=== PATIENT | female | born 1940 | race American Indian/Alaskan Native ===

== ENCOUNTER 2018-09-26 00:19 | Emergency (ER) | payer MEDICARE, OTHER ==
[2018-09-26] MEDS ORDERED: D50W (25GM) Syringe IV ONE ×2 (00:28→00:48)
[2018-09-26 02:57] LABS: Basophils % (Auto) 0.5 % (0.0-1.8); Eosinophils # (Auto) 0.1 K/mm3 (0.0-0.4); Eosinophils % (Auto) 0.8 % (0.0-4.3); Hematocrit 31.1 % (30.3-42.9); Hemoglobin 9.9 gm/dl (10.1-14.3); Lymphocytes # (Auto) 1.2 K/mm3 (1.2-5.4); Lymphocytes % (Auto) 16.8 % (13.4-35.0); Mean Corpuscular HGB Conc 32 % (30-34); Mean Corpuscular Volume 85 fl (79-97); Monocytes # (Auto) 0.5 K/mm3 (0.0-0.8); Platelet Count 225 K/mm3 (140-440); Red Blood Count 3.68 M/mm3 (3.65-5.03); Red Cell Distribution Width 16.5 % (13.2-15.2)
[2018-09-26 03:03] LABS: Alanine Aminotransferase 10 units/L (7-56); Albumin 3.6 g/dL (3.9-5); BUN/Creatinine Ratio 26; Blood Urea Nitrogen 41 mg/dL (7-17); Calcium 9.3 mg/dL (8.4-10.2); Hemolysis Index 3
[2018-09-26 03:29] LABS: Bilirubin,Urine NEG (Negative); Blood,Urine NEG (Negative); Color,Urine Straw (Yellow); Urobilinogen,Urine < 2.0 mg/dL (<2.0); WBC,Urine < 1.0 /HPF (0.0-6.0)
--- NOTE | 2018-09-26 03:39 | Emergency Department Report ---
ED General Adult HPI - General Chief complaint: Hypoglycemia Stated complaint: LOW BLOOD SUGAR Time Seen by Provider: 09/26/18 00:33 Source: EMS Mode of arrival: Wheelchair Limitations: Altered Mental Status - History of Present Illness Initial comments: 78-year-old female to shoot insulin-dependent diabetes presents to ED with hypoglycemia. Has been called EMS because patient was altered. Upon EMS arrival patient had Accu-Chek of 29. EMS unable to obtain IV and give D50 so transported to ED. Initial Accu-Chek here in ED read low, so the nurses inserted IV and gave 2 amps of D50. When I saw the patient, patient is awake and alert, pleasant, answering questions appropriately. Patient says she doesn't remember what happened, unsure if she ate prior to administering insulin this evening. -: During the night Severity scale (0 -10): 0 Consistency: now resolved Associated Symptoms: confusion Treatments Prior to Arrival: none - Related Data Home Medications Medication Instructions Recorded Confirmed Last Taken Anastrozole (Nf) [Arimidex (Nf)] 1 mg PO DAILY 03/04/14 03/10/14 03/09/14 Benazepril HCl 40 mg PO QDAY 03/04/14 03/10/14 03/10/14 04:45 Carvedilol [Coreg] 25 mg PO BID 03/04/14 03/10/14 03/10/14 04:45 Colchicine [Colcrys] 0.6 mg PO DAILY PRN 03/04/14 03/10/14 03/07/14 Ergocalciferol [Vitamin D2] 1.25 mg PO QWEEK 03/04/14 03/10/14 03/03/14 Furosemide [Lasix] 20 mg PO DAILY 03/04/14 03/10/14 03/09/14 Gabapentin 100 mg PO QHS 03/04/14 03/10/14 03/08/14 Insulin NPH Human Isophane 40 unit SQ BID 03/04/14 03/10/14 03/09/14 [HumuLIN N] Potassium Chloride 20 meq PO QDAY 03/04/14 03/10/14 03/09/14 Simvastatin 20 mg PO QHS 03/04/14 03/10/14 03/09/14 amLODIPine [Norvasc] 10 mg PO DAILY 03/04/14 03/10/14 03/10/14 04:45 cloNIDine [Catapres] 0.1 mg PO QHS 03/04/14 03/10/14 03/10/14 04:45 glipiZIDE [glipiZIDE XL] 10 mg PO TID 03/04/14 03/10/14 03/09/14 sitaGLIPtin [Januvia] 50 mg PO QDDIAB 03/04/14 03/10/14 03/09/14 Previous Rx's Medication Instructions Recorded Last Taken Type oxyCODONE /ACETAMINOPHEN [Percocet 1 - 2 tab PO Q4HR PRN #30 tablet 03/12/14 Unknown Rx 5/325] Allergies Allergy/AdvReac Type Severity Reaction Status Date / Time Sulfa (Sulfonamide Allergy Intermediate Nausea Verified 03/10/14 15:57 Antibiotics) ED Review of Systems ROS: Stated complaint: LOW BLOOD SUGAR Other details as noted in HPI Comment: All other systems reviewed and negative Constitutional: denies: chills, fever Respiratory: denies: cough, shortness of breath Cardiovascular: denies: chest pain Gastrointestinal: denies: abdominal pain, vomiting, diarrhea ED Past Medical Hx - Past Medical History Previous Medical History?: Yes Hx Hypertension: Yes (FOR 8 YRS, [facility]- 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 AG- [employer]) Hx Arthritis: Yes - Surgical History Additional Surgical History: Mastectomy - Social History Smoking Status: Never Smoker Substance Use Type: None - Medications Home Medications: Home Medications Medication Instructions Recorded Confirmed Last Taken Type Anastrozole (Nf) [Arimidex (Nf)] 1 mg PO DAILY 03/04/14 03/10/14 03/09/14 History Benazepril HCl 40 mg PO QDAY 03/04/14 03/10/14 03/10/14 04:45 History Carvedilol [Coreg] 25 mg PO BID 03/04/14 03/10/14 03/10/14 04:45 History Colchicine [Colcrys] 0.6 mg PO DAILY PRN 03/04/14 03/10/14 03/07/14 History Ergocalciferol [Vitamin D2] 1.25 mg PO QWEEK 03/04/14 03/10/14 03/03/14 History Furosemide [Lasix] 20 mg PO DAILY 03/04/14 03/10/14 03/09/14 History Gabapentin 100 mg PO QHS 03/04/14 03/10/14 03/08/14 History Insulin NPH Human Isophane 40 unit SQ BID 03/04/14 03/10/14 03/09/14 History [HumuLIN N] Potassium Chloride 20 meq PO QDAY 03/04/14 03/10/14 03/09/14 History Simvastatin 20 mg PO QHS 03/04/14 03/10/14 03/09/14 History amLODIPine [Norvasc] 10 mg PO DAILY 03/04/14 03/10/14 03/10/14 04:45 History cloNIDine [Catapres] 0.1 mg PO QHS 03/04/14 03/10/14 03/10/14 04:45 History glipiZIDE [glipiZIDE XL] 10 mg PO TID 03/04/14 03/10/14 03/09/14 History sitaGLIPtin [Januvia] 50 mg PO QDDIAB 03/04/14 03/10/14 03/09/14 History oxyCODONE /ACETAMINOPHEN [Percocet 1 - 2 tab PO Q4HR PRN #30 tablet 03/12/14 Unknown Rx 5/325] ED Physical Exam - General Limitations: Altered Mental Status General appearance: alert, in no apparent distress - Head Head exam: Present: atraumatic, normocephalic - Eye Eye exam: Present: normal appearance - ENT ENT exam: Present: mucous membranes moist - Neck Neck exam: Present: normal inspection - Respiratory Respiratory exam: Present: normal lung sounds bilaterally. Absent: respiratory distress - Cardiovascular Cardiovascular Exam: Present: regular rate, normal rhythm - GI/Abdominal GI/Abdominal exam: Present: soft. Absent: distended, tenderness - Extremities Exam Extremities exam: Present: normal inspection - Neurological Exam Neurological exam: Present: alert, oriented X3, CN II-XII intact. Absent: motor sensory deficit - Psychiatric Psychiatric exam: Present: normal affect, normal mood - Skin Skin exam: Present: warm, dry, intact, normal color. Absent: rash ED Course Vital Signs 09/26/18 09/26/18 09/26/18 00:32 00:46 01:00 Pulse Rate 63 64 65 Respiratory 15 15 14 Rate Blood Pressure 141/53 141/53 Blood Pressure [Right] O2 Sat by Pulse 100 100 99 Oximetry 09/26/18 09/26/18 09/26/18 01:06 01:15 01:30 Pulse Rate 65 65 66 Respiratory 15 16 14 Rate Blood Pressure 140/54 140/54 Blood Pressure 133/52 [Right] O2 Sat by Pulse 100 99 99 Oximetry 09/26/18 09/26/18 09/26/18 01:46 02:00 02:16 Pulse Rate 66 72 70 Respiratory 17 14 17 Rate Blood Pressure 130/104 114/67 140/68 Blood Pressure [Right] O2 Sat by Pulse 100 100 100 Oximetry 09/26/18 09/26/18 09/26/18 02:30 02:46 03:00 Pulse Rate 72 73 91 H Respiratory 18 18 21 Rate Blood Pressure 171/81 132/98 Blood Pressure [Right] O2 Sat by Pulse 99 100 100 Oximetry 09/26/18 09/26/18 09/26/18 03:16 03:30 04:14 Pulse Rate 69 68 68 Respiratory 16 17 17 Rate Blood Pressure 132/98 132/98 Blood Pressure 133/52 [Right] O2 Sat by Pulse 99 98 98 Oximetry ED Medical Decision Making - Lab Data Result diagrams: 09/26/18 01:01 09/26/18 01:01 - Medical Decision Making Accu-Chek now normal. Patient given a sandwich and juice to eat. States she is ready to go home. Will discharge at this time. Outpatient follow-up advised. - Differential Diagnosis hypoglycemia, UTI Critical care attestation.: If time is entered above; I have spent that time in minutes in the direct care of this critically ill patient, excluding procedure time. ED Disposition Clinical Impression: Hypoglycemia Disposition: DC-01 TO HOME OR SELFCARE Is pt being admited?: No Condition: Stable Instructions: Diabetic Hypoglycemia (ED) Referrals: PRIMARY CARE, [Referring] - 3-5 Days Forms: Work/School Release Form(ED) Time of Disposition: 03:39
[2018-09-26 04:16] VITALS: BP 133/52
== END 2018-09-26 04:14 | disposition home or self-care (01) ==
LOC: ED 00:19
DX: E11.649 Type 2 diabetes mellitus with hypoglycemia without coma (principal); E11.22 Type 2 diabetes mellitus with diabetic chronic kidney disease; I12.9 Hypertensive chronic kidney disease with stage 1 through stage 4 chronic kidney disease, or unspecified chronic kidney disease; N18.9 Chronic kidney disease, unspecified; Z88.2 Allergy status to sulfonamides
CPT/HCPCS: 36415; 80053; 81001; 82962; 85025; 96374

== ENCOUNTER 2021-01-01 09:36 | Outpatient (CLI) | payer MEDICARE ==
--- NOTE | 2021-01-01 12:35 | Mammography Report ---
DIGITAL SCREENING MAMMOGRAM WITH CAD, 01/01/2021 CLINICAL INFORMATION / INDICATION: Routine screening mammography. SCREENING MAMMO TECHNIQUE: Digital bilateral 2D mammography was obtained in the craniocaudal and mediolateral obliqu e projections. This examination was interpreted with the benefit of Computer-Aided Detection analysis . COMPARISON: 08/25/16 through 01/01/20. FINDINGS: Breast Density: There are scattered areas of fibroglandular density. Postlumpectomy/radiation changes in the left breast are stable. No new abnormality is seen on the lef t. There is a new 5 mm ill-defined nodule in the right breast in the lower inner quadrant in the middle depth near the 5:00 position approximately 6 cm from the nipple. No other change is seen. IMPRESSION: New small right breast nodule. Right breast ultrasound is recommended for initial evaluat ion. Spot compression views could be performed if necessary. Follow up recommendation: Ultrasound BI-RADS Category 0: Incomplete. Needs additional imaging evaluation and/or prior mammograms for terrance jay. A "normal" or negative report should not discourage follow up or biopsy of a clinically significant f inding. A written summary of these findings will be mailed to the patient. The patient will be entered into a mammography reporting system which will generate a reminder letter for the patient's next appointmen t at the appropriate interval. The [employer] recommends yearly mammograms starting at age 40 and continuing as l beverly as a woman is in good health. Breast MRI is recommended for women with an approximate 20-25% or greater lifetime risk of breast cancer, including women with a strong family history of breast or ova cedrick cancer or who have been treated for Hodgkin's disease. Signer Name: Jet Croft MD Signed: 01/01/2021 12:30 PM Workstation Name: [id number]
== END 2021-01-01 09:37 | disposition home or self-care (01) ==
LOC: SPVWC 09:36
PROVIDERS: ATTEND Surgery
DX: Z12.31 Encounter for screening mammogram for malignant neoplasm of breast (principal); N63.14 Unspecified lump in the right breast, lower inner quadrant
CPT/HCPCS: 77067

== ENCOUNTER 2021-01-13 15:19 | Outpatient (CLI) | payer MEDICARE ==
--- NOTE | 2021-01-14 10:39 | Ultrasound Report ---
RIGHT DIGITAL DIAGNOSTIC MAMMOGRAM WITH CAD , 01/13/2021 RIGHT LIMITED BREAST ULTRASOUND CLINICAL INFORMATION / INDICATION: ABNORMAL MAMMO R92.8 TECHNIQUE: Digital right mammographic imaging was performed. Spot compression views were obtained. Li mited ultrasound was performed. This examination was interpreted with the benefit of Computer-Aided D etection (CAD) analysis. COMPARISON: Recent screening mammogram 01/01/2021 and prior mammograms from 2019 and 2018 FINDINGS: Breast Density: There are scattered areas of fibroglandular density. MAMMOGRAPHIC FINDINGS: In the 6-7:00 location of the right breast, anterior/middle depth, there is a small oval nodule with slightly indistinct margins, present. This nodule measures approximately 7 x 5 mm. This nodule was not present on the 2020 mammogram.. ULTRASOUND FINDINGS: Targeted ultrasound evaluation was performed of the area of interest. Sonograp hic evaluation of the inferior right breast does not reveal any cystic or solid mass. Specifically th ere is no finding to correlate with the new nodule identified mammographically. IMPRESSION: Persistent 7 mm nodule in the inferior right breast at approximately 6-7:00. As there is no sonographic correlate, stereotactic biopsy is recommended for further evaluation. Follow up recommendation: Biopsy BI-RADS Category 4: Suspicious for Malignancy. A "normal" or negative report should not discourage follow up or biopsy of a clinically significant f inding. A written summary of these findings will be mailed to the patient. The patient will be entered into a mammography reporting system which will generate a reminder letter for the patient's next appointmen t at the appropriate interval. According to the [employer], yearly mammograms are recommended starting at age 40 and continuing as long as a woman is in good health. Breast MRI is recommended for women with an bj roximately 20-25% or greater lifetime risk of breast cancer, including women with a strong family his tory of breast or ovarian cancer and women who have been treated for Hodgkin's disease. Signer Name: Nicki Lagunas MD Signed: 01/14/2021 10:35 AM Workstation Name: [id number]
== END 2021-01-13 15:20 | disposition home or self-care (01) ==
LOC: SPVWC 15:19
PROVIDERS: ATTEND Surgery
DX: N63.13 Unspecified lump in the right breast, lower outer quadrant (principal); R92.8 Other abnormal and inconclusive findings on diagnostic imaging of breast

== ENCOUNTER 2021-02-09 09:27 | Outpatient (CLI) | payer MEDICARE ==
--- NOTE | 2021-02-09 11:58 | Mammography Report ---
PERCUTANEOUS STEREOTACTIC-GUIDED RIGHT BREAST BIOPSY WITH MARKER PLACEMENT HISTORY: Right inferior breast lesion. CONSENT: Technique, risks and alternatives were discussed with the patient and informed written conse nt obtained. PROCEDURE: The patient was placed in the upright position within the stereotactic suite. The lesion within the i nferior right breast was targeted mammographically. [employer] and stereo pair images were acquired to gen erate the computer-derived coordinates for targeting. The skin overlying the chosen biopsy site were cleansed with Betadine. The skin and superficial soft tissues were anesthetized with a small amount of buffered 1% lidocaine. The deeper soft tissues were anesthetized with buffered 1% lidocaine with epinephrine. A small dermatotomy was created through which the Atec biopsy device was placed. Pre and post fire st ereo pair images were acquired to confirm appropriate needle trajectory. Using vacuum assistance, 8 c ore specimen samples were acquired. A post procedure stereo pair image suggested adequate sampling of the target. A post procedure specimen was obtained, however no definite mammographic lesion was seen . This is not unexpected. A biopsy marker was deposited at the biopsy site. Postprocedure mammograms in the CC and LM projection were obtained. These demonstrate slight decrease appearance of the mammo graphic mass with air and biopsy changes in this region. The biopsy marker is felt to be slightly med ial (13 mm) to the biopsy site. Manual pressure was applied at the biopsy site to achieve hemostasis. The incision margins were appro ximated with Steri-Strips. Postprocedure care instructions were administered in both verbal and writt en forms. The patient voiced understanding and departed the [facility] in stable, satisfactory con dition. IMPRESSION Technically successful stereotactic biopsy of right breast lesion at the 7:00 position with the biops y marker located slightly medial (13 mm) to the biopsy site. An addendum will be added to this report once pathology results are available. Signer Name: Deuce Rubio MD Signed: 02/09/2021 11:54 AM Workstation Name: [id number]
--- NOTE | 2021-02-09 12:01 | Mammography Report ---
RIGHT DIAGNOSTIC MAMMOGRAM INDICATION: Status post right breast stereotactic biopsy. COMPARISON: 01/13/2021, 01/01/2021. FINDINGS: Right breast CC and LM projection mammograms were obtained. These document a biopsy marker 13 mm medial to the site of recent stereotactic biopsy. Biopsy changes including gas are noted at the site of the previously noted lesion in the right inferior breast. IMPRESSION: Right breast mammographic images documenting biopsy marker located slightly medial (13 mm) to the sit e of recent stereotactic biopsy within the right breast. BI-RADS Category 4: Suspicious for Malignancy. Signer Name: Deuce Rubio MD Signed: 02/09/2021 11:56 AM Workstation Name: [id number]
== END 2021-02-09 09:28 | disposition home or self-care (01) ==
LOC: SPVWC 09:27
PROVIDERS: ATTEND Surgery
DX: R92.8 Other abnormal and inconclusive findings on diagnostic imaging of breast (principal); I10 Essential (primary) hypertension; E78.00 Pure hypercholesterolemia, unspecified; M19.90 Unspecified osteoarthritis, unspecified site; Z85.3 Personal history of malignant neoplasm of breast; Z79.899 Other long term (current) drug therapy; Z98.890 Other specified postprocedural states
CPT/HCPCS: 19081; 77065; 88305; A4648; 88341; 88342

== ENCOUNTER 2021-09-23 10:02 | Observation (INO) | payer MEDICARE ==
--- NOTE | 2021-09-23 10:12 | Emergency Department Report ---
ED Neuro Deficit HPI - General Chief Complaint: Neuro Symptoms/Deficit Stated Complaint: STROKE Time Seen by Provider: 09/23/21 10:06 - History of Present Illness Initial Comments: 81-year-old female history of hypertension and diabetes who presents emergency department concern for acute stroke. Patient was last known normal yesterday. Around 830 she was noted to be acting abnormally. When paramedics arrived patient's blood sugar was in the 40s she received oral glucose and her blood sugar improved to the 160s. She continues to have slurred speech despite glucose administration. - Related Data Home Medications: Home Medications Medication Instructions Recorded Confirmed Last Taken Simvastatin 20 mg PO QHS 03/04/14 03/10/14 09/22/21 21:00 20 MG amLODIPine 10 mg PO DAILY 03/04/14 03/10/14 09/22/21 0800 carvediloL [Coreg] 25 mg PO BID 03/04/14 03/10/14 09/22/21 0800 Insulin Glargine,Hum.rec.anlog 20 units SQ HS 09/23/21 09/23/21 09/22/21 21:00 [Lantus Solostar] 20 UNITS Palbociclib [Ibrance] 100 mg PO DAILY 09/23/21 09/23/21 09/22/21 0800 Allergies/Adverse Reactions: Allergies Allergy/AdvReac Type Severity Reaction Status Date / Time Sulfa (Sulfonamide Allergy Intermediate Nausea Verified 09/23/21 13:55 Antibiotics) ED Review of Systems ROS: Stated complaint: STROKE Other details as noted in HPI Comment: Unobtainable due to pts medical conditions ED Past Medical Hx - Past Medical History Hx Hypertension: Yes (FOR 8 YRS, [facility]- PCP, DR. 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 AG- [place]) Hx Arthritis: Yes - Surgical History Additional Surgical History: Mastectomy - Social History Smoking Status: Never Smoker Substance Use Type: None - Medications Home Medications: Home Medications Medication Instructions Recorded Confirmed Last Taken Type Simvastatin 20 mg PO QHS 03/04/14 03/10/14 09/22/21 21:00 History 20 MG amLODIPine 10 mg PO DAILY 03/04/14 03/10/14 09/22/21 History 0800 carvediloL [Coreg] 25 mg PO BID 03/04/14 03/10/14 09/22/21 History 08 Insulin Glargine,Hum.rec.anlog 20 units SQ HS 09/23/21 09/23/21 09/22/21 21:00 History [Lantus Solostar] 20 UNITS Palbociclib [Ibrance] 100 mg PO DAILY 09/23/21 09/23/21 09/22/21 History 0800 ED Neuro Physical Exam - General General appearance: alert Suspected Stroke: Yes - Head Head exam: Present: atraumatic, normocephalic - Eye Eye exam: Present: normal appearance - ENT ENT exam: Present: mucous membranes moist - Neck Neck exam: Present: normal inspection - Respiratory Respiratory exam: Present: normal lung sounds bilaterally. Absent: respiratory distress - Cardiovascular Cardiovascular Exam: Present: regular rate, normal rhythm. Absent: systolic murmur, diastolic murmur, rubs, gallop - GI/Abdominal GI/Abdominal exam: Present: soft, normal bowel sounds - Rectal Rectal exam: Present: deferred - Extremities Exam Extremities exam: Present: normal inspection - Back Exam Back exam: Present: normal inspection - Neurological Exam Neurological exam: Present: alert - NIHSS Assessment Interval: Baseline 1a. Level of Consciousness: alert/keenly responsive 1b. LOC Questions: answers 1 question correctly 1c. LOC Commands: performs tasks correctly 2. Best Gaze: normal 3. Visual: no visual loss 4. Facial Palsy: normal symmetrical movement 5b. Motor Arm Right: no drift 5a. Motor Arm Left: no drift 6a. Motor Leg Left: no drift 6b. Motor Leg Right: no drift 7. Limb Ataxia: absent 8. Sensory: normal 9. Best Language: mild/moderate aphasia 10. Dysarthria: mild/moderate dysarthria 11. Extinction/Inattention: no abnormality Total Score: 3 Stroke Severity: Minor Stroke - Psychiatric Psychiatric exam: Present: normal affect - Skin Skin exam: Present: warm, dry, intact, normal color. Absent: rash ED Course Vital Signs 09/23/21 09/23/21 09/23/21 10:27 10:30 10:45 Temperature Pulse Rate 53 L 55 L Respiratory 14 13 17 Rate Blood Pressure 125/51 123/44 Blood Pressure [Right] O2 Sat by Pulse 97 Oximetry 09/23/21 09/23/21 09/23/21 11:01 11:15 11:31 Temperature Pulse Rate 54 L 54 L 58 L Respiratory 15 14 16 Rate Blood Pressure 125/40 135/38 128/81 Blood Pressure [Right] O2 Sat by Pulse 96 96 97 Oximetry 09/23/21 09/23/21 09/23/21 12:01 13:01 14:01 Temperature Pulse Rate 60 62 68 Respiratory 15 12 25 H Rate Blood Pressure 128/81 94/74 113/75 Blood Pressure [Right] O2 Sat by Pulse 99 98 96 Oximetry 09/23/21 09/23/21 09/23/21 15:01 15:11 16:01 Temperature Pulse Rate 69 69 Respiratory 14 16 20 Rate Blood Pressure 161/142 171/57 Blood Pressure [Right] O2 Sat by Pulse 96 100 97 Oximetry 09/23/21 09/23/21 09/23/21 17:01 18:01 18:45 Temperature Pulse Rate 74 69 76 Respiratory 22 17 Rate Blood Pressure 159/57 144/58 Blood Pressure [Right] O2 Sat by Pulse 96 96 Oximetry 09/23/21 09/23/21 09/23/21 19:01 20:01 21:01 Temperature Pulse Rate 80 74 75 Respiratory 19 16 20 Rate Blood Pressure 133/70 164/57 160/49 Blood Pressure [Right] O2 Sat by Pulse 96 97 97 Oximetry 09/23/21 09/23/21 09/23/21 21:31 21:41 21:51 Temperature Pulse Rate 82 79 77 Respiratory 20 21 21 Rate Blood Pressure 160/49 160/49 160/49 Blood Pressure [Right] O2 Sat by Pulse 97 98 97 Oximetry 09/23/21 09/23/21 09/23/21 22:01 22:11 22:21 Temperature Pulse Rate 77 77 79 Respiratory 17 22 20 Rate Blood Pressure 170/50 170/50 170/50 Blood Pressure [Right] O2 Sat by Pulse 99 97 97 Oximetry 09/23/21 09/23/21 09/23/21 22:54 23:06 23:18 Temperature 98.3 F 98.0 F Pulse Rate 79 74 Respiratory 16 19 Rate Blood Pressure 170/50 141/58 Blood Pressure 170/50 [Right] O2 Sat by Pulse 100 95 Oximetry - Reevaluation(s) Reevaluation #1: 09/23/21 11:55 Patient has hypoglycemia second episode she is also noted to be on glipizide. Concern for possible glipizide overdose. We will place patient on D10 and patient likely to be admitted for further management. Reevaluation #2: 09/23/21 13:13 Stroke unlikely. Patient is not the TPA candidate due to her hypoglycemia and unknown last normal and her symptoms are likely secondary to this. - Lab Data Result diagrams: 09/23/21 10:22 09/23/21 Unknown Lab Results 09/23/21 09/23/21 09/23/21 Range/Units 10: 10: 10: WBC 2.0 L (4.5-11.0) K/mm3 RBC 2.65 L (3.65-5.03) M/mm3 Hgb 7.7 L (10.1-14.3) gm/dl Hct 23.0 L (30.3-42.9) % MCV 87 (79-97) fl MCH 29 (28-32) pg MCHC 34 (30-34) % RDW 22.8 H (13.2-15.2) % Plt Count 100 L (140-440) K/mm3 Add Manual Diff Complete Total Counted 100 Seg Neuts % (Manual) 71.0 H (40.0-70.0) % Band Neutrophils % 0 % Lymphocytes % (Manual) 25.0 (13.4-35.0) % Reactive Lymphs % (Man) 0 % Monocytes % (Manual) 3.0 (0.0-7.3) % Eosinophils % (Manual) 0 (0.0-4.3) % Basophils % (Manual) 1.0 (0.0-1.8) % Metamyelocytes % 0 % Myelocytes % 0 % Promyelocytes % 0 % Blast Cells % 0 % Nucleated RBC % 1.0 H (0.0-0.9) % Seg Neutrophils # Man 1.4 L (1.8-7.7) K/mm3 Band Neutrophils # 0.0 K/mm3 Lymphocytes # (Manual) 0.5 L (1.2-5.4) K/mm3 Abs React Lymphs (Man) 0.0 K/mm3 Monocytes # (Manual) 0.1 (0.0-0.8) K/mm3 Eosinophils # (Manual) 0.0 (0.0-0.4) K/mm3 Basophils # (Manual) 0.0 (0.0-0.1) K/mm3 Metamyelocytes # 0.0 K/mm3 Myelocytes # 0.0 K/mm3 Promyelocytes # 0.0 K/mm3 Blast Cells # 0.0 K/mm3 WBC Morphology Not Reportable Hypersegmented Neuts Not Reportable Hyposegmented Neuts Not Reportable Hypogranular Neuts Not Reportable Smudge Cells Few Toxic Granulation Not Reportable Toxic Vacuolation Not Reportable Dohle Bodies Not Reportable Pelger-Huet Anomaly Not Reportable Shruthi Rods Not Reportable Platelet Estimate Consistent w auto Clumped Platelets Not Reportable Plt Clumps, EDTA Not Reportable Large Platelets Not Reportable Giant Platelets Not Reportable Platelet Satelliting Not Reportable Plt Morphology Comment Not Reportable RBC Morphology Not Reportable Dimorphic RBCs Not Reportable Polychromasia Not Reportable Hypochromasia Not Reportable Poikilocytosis Not Reportable Anisocytosis 1+ Microcytosis Not Reportable Macrocytosis 1+ Spherocytes Not Reportable Pappenheimer Bodies Not Reportable Sickle Cells Not Reportable Target Cells Not Reportable Tear Drop Cells Not Reportable Ovalocytes Few Helmet Cells Not Reportable Meyer-[place] Bodies Not Reportable [place] Rings Not Reportable [place] Cells Not Reportable Bite Cells Not Reportable Crenated Cell Not Reportable Elliptocytes Few Acanthocytes (Spur) Not Reportable Rouleaux Not Reportable Hemoglobin C Crystals Not Reportable Schistocytes Not Reportable Malaria parasites Not Reportable Holden Bodies Not Reportable Hem Pathologist Commnt No PT 13.1 (12.2-14.9) Sec. INR 0.90 (0.87-1.13) APTT 26.1 (24.2-36.6) Sec. Thrombin Time 18.8 (15.1-19.6) Sec. POC Glucose (70-105) mg/dL Total Creatine Kinase 97 (30-135) units/L CK-MB (CK-2) 1.8 (0.0-4.0) ng/mL CK-MB (CK-2) Rel Index 1.8 (0-4) Troponin T < 0.010 (0.00-0.029) ng/mL 09/23/21 09/23/21 09/23/21 Range/Units 11:06 13:05 18:18 WBC (4.5-11.0) K/mm3 RBC (3.65-5.03) M/mm3 Hgb (10.1-14.3) gm/dl Hct (30.3-42.9) % MCV (79-97) fl MCH (28-32) pg MCHC (30-34) % RDW (13.2-15.2) % Plt Count (140-440) K/mm3 Add Manual Diff Total Counted Seg Neuts % (Manual) (40.0-70.0) % Band Neutrophils % % Lymphocytes % (Manual) (13.4-35.0) % Reactive Lymphs % (Man) % Monocytes % (Manual) (0.0-7.3) % Eosinophils % (Manual) (0.0-4.3) % Basophils % (Manual) (0.0-1.8) % Metamyelocytes % % Myelocytes % % Promyelocytes % % Blast Cells % % Nucleated RBC % (0.0-0.9) % Seg Neutrophils # Man (1.8-7.7) K/mm3 Band Neutrophils # K/mm3 Lymphocytes # (Manual) (1.2-5.4) K/mm3 Abs React Lymphs (Man) K/mm3 Monocytes # (Manual) (0.0-0.8) K/mm3 Eosinophils # (Manual) (0.0-0.4) K/mm3 Basophils # (Manual) (0.0-0.1) K/mm3 Metamyelocytes # K/mm3 Myelocytes # K/mm3 Promyelocytes # K/mm3 Blast Cells # K/mm3 WBC Morphology Hypersegmented Neuts Hyposegmented Neuts Hypogranular Neuts Smudge Cells Toxic Granulation Toxic Vacuolation Dohle Bodies Pelger-Huet Anomaly Shruthi Rods Platelet Estimate Clumped Platelets Plt Clumps, EDTA Large Platelets Giant Platelets Platelet Satelliting Plt Morphology Comment RBC Morphology Dimorphic RBCs Polychromasia Hypochromasia Poikilocytosis Anisocytosis Microcytosis Macrocytosis Spherocytes Pappenheimer Bodies Sickle Cells Target Cells Tear Drop Cells Ovalocytes Helmet Cells Meyer-[place] Bodies [place] Rings Denisse Cells Bite Cells Crenated Cell Elliptocytes Acanthocytes (Spur) Rouleaux Hemoglobin C Crystals Schistocytes Malaria parasites Holden Bodies Hem Pathologist Commnt PT (12.2-14.9) Sec. INR (0.87-1.13) APTT (24.2-36.6) Sec. Thrombin Time (15.1-19.6) Sec. POC Glucose 44 L 120 H 114 H (70-105) mg/dL Total Creatine Kinase (30-135) units/L CK-MB (CK-2) (0.0-4.0) ng/mL CK-MB (CK-2) Rel Index (0-4) Troponin T (0.00-0.029) ng/mL - Medical Decision Making Patient is a 81-year-old female here with complaints of slurred speech in the setting hypoglycemia. Despite additional glucose administration patient is still with slurred speech. Unknown last known normal but apparently symptoms were onset around 8:30 PM per paramedics. Stroke 24 is called and patient went emergently for CT head without contrast, CTA head and neck with contrast. Will also have further discussion with patient family to further determine last known normal. We will also obtain serial blood sugars for 4 hours to evaluate for any additional hypoglycemia. Will work-up for hypoglycemia to ensure patient does not have an DC or infection or overdose of medication as cause of her hypoglycemia. Critical care attestation.: If time is entered above; I have spent that time in minutes in the direct care of this critically ill patient, excluding procedure time. ED Disposition Clinical Impression: Hypoglycemia, Adverse effect of glipizide, ZULAY (acute kidney injury) Disposition: 09 ADMITTED INPATIENT Is pt being admited?: Yes Does the pt Need Aspirin: No Condition: Stable
--- NOTE | 2021-09-23 10:23 | Cat Scan Report ---
CT head/brain wo con INDICATION: CODE STROKE CALL [phone]. TECHNIQUE: Routine CT head. All CT scans at this location are performed using CT dose reduction for A OLGA LIDIA by means of automated exposure control. COMPARISON: None. FINDINGS: Intracranial: Juares-white matter differentiation is maintained. No intracranial hemorrhage. No extra a xial collection. No hydrocephalus. No herniation. Sinuses: Paranasal sinuses and mastoid air cells are essentially clear. Orbits: Globes are intact. Calvarium: No acute fracture. IMPRESSION: 1. No acute intracranial abnormality. Informed Sukhwinder Timmons at 9:18 Signer Name: Shakir Jeffers MD Signed: 09/23/2021 10:18 AM Workstation Name: [id number]
[2021-09-23 10:38] LABS: Hemoglobin 7.7 gm/dl (10.1-14.3); Mean Corpuscular HGB Conc 34 % (30-34); Mean Corpuscular Volume 87 fl (79-97); Platelet Count 100 K/mm3 (140-440); Red Blood Count 2.65 M/mm3 (3.65-5.03)
[2021-09-23 10:42] LABS: Red Cell Distribution Width 22.8 % (13.2-15.2)
--- NOTE | 2021-09-23 10:46 | Cat Scan Report ---
CT angio head, CT angio neck HISTORY: slurred speech 100 ML OMNI 350 COMPARISON: None. TECHNIQUE: CTA of the neck and head is performed after IV contrast. 3-D/MIP reformats were postproces sed. Percentage stenosis is determined by direct quantitative measurements of diseased internal tripathi tid artery diameter compared with normal distal internal carotid artery reference segments or by crit eria similar to NASCET where applicable. All CT scans at this location are performed using CT dose re duction for ALARA by means of automated exposure control. FINDINGS: CTA Neck: Aortic arch: No significant abnormality. Cervical vertebral arteries: No occlusion or hemodynamically significant stenosis. Common Carotid arteries: No occlusion or hemodynamically significant stenosis. Internal carotid arteries: Bulky atherosclerosis approximately 70% stenosis the right internal caroti d artery origin, image 189 of series 4. Minimal poststenotic dilation. High-grade stenosis of the rig ht external carotid artery origin. Mild atherosclerosis of the left carotid bulb without significant stenosis or occlusion. Additional findings: Interlobular septal thickening and peribronchial thickening in the visualized imelda ng parenchyma which is likely related to interstitial edema.. There are scattered groundglass opaciti es. There is a 5 mm pulmonary nodule along the right fissure as seen on image 81 of series 607, most likely a peripheral lymph node. CTA HEAD: Intracranial internal carotid arteries: No occlusion or significant stenosis. Anterior cerebral arteries: No occlusion or significant stenosis. Middle cerebral arteries: No occlusion or significant stenosis. Intracranial vertebral arteries: No occlusion or significant stenosis. Basilar artery: No occlusion or significant stenosis. Posterior cerebral arteries: No occlusion or significant stenosis. No aneurysm. Additional findings: None. IMPRESSION: 1. CTA Neck: Bulky atherosclerosis in the right carotid bulb and proximal internal carotid artery jon gin with approximately 70% stenosis. 2. CTA HEAD: No proximal large vessel occlusion. Signer Name: Shakir Jeffers MD Signed: 09/23/2021 10:41 AM Workstation Name: [id number]
[2021-09-23 10:49] LABS: INR 0.9 (0.87-1.13)
[2021-09-23 10:50] LABS: Thrombin Time 18.8 Sec. (15.1-19.6)
[2021-09-23 10:54] LABS: Partial Thromboplastin Time 26.1 Sec. (24.2-36.6)
[2021-09-23 10:56] LABS: Creatine Kinase MB 1.8 ng/mL (0.0-4.0)
[2021-09-23] MEDS ORDERED: DEXTROSE 10% *Hypoglycemia IV ONE (11:11)
--- NOTE | 2021-09-23 11:12 | XRay Report ---
. XR chest 1V ap INDICATION / CLINICAL INFORMATION: stroke workup. COMPARISON: None available. FINDINGS: SUPPORT DEVICES: None. HEART /PULMONARY VASCULATURE: Heart size is accentuated by low lung volumes and AP technique. No sign ificant pulmonary vasculature congestion. LUNGS / PLEURA: Mildly low lung volumes without focal airspace consolidation. No pleural effusion or pneumothorax. IMPRESSION: Low lung volumes without evidence of acute process. Signer Name: Jeremy Licea MD Signed: 09/23/2021 11:08 AM Workstation Name: [id number]
[2021-09-23 11:24] LABS: Eosinophils % (Manual) 0 % (0.0-4.3); Total Cells Counted 100
[2021-09-23 11:25] LABS: Anisocytosis 1+; Macrocytosis 1+; Ovalocytes Few; Platelet Estimate Consistent w Auto; Smudge Cells Few
--- NOTE | 2021-09-23 11:41 | Emergency Department Report ---
Blank Doc - Documentation Documentation: [facility] Consult Note # Demographics Consult Type: Acute Stroke Level 2 (4.5-24 hrs) Patient Location: Emergency Room First Name: Magnolia Last Name: Carlos Age: 81 Gender: Female Facility: [facility] Time of Initial Page ( Time): 09/23/2021, 09:46 Time of Return Call ( Time): 09/23/2021, 09:46 # Scores Time of exam and NIHSS ( Time): 09/23/2021, 10:22 Level of Consciousness 1a: [0] = Alert; keenly responsive LOC Questions 1b: [0] = Answers both questions correctly LOC Commands 1c: [0] = Performs both tasks correctly Best Gaze 2: [0] = Normal Visual 3: [0] = No visual loss Facial Palsy 4: [1] = Minor paralysis Motor Arm Left 5a: [0] = No drift Motor Arm Right 5b: [0] = No drift Motor Leg Left 6a: [0] = No drift Motor Leg Right 6b: [0] = No drift Limb Ataxia 7: [0] = Absent Sensory 8: [0] = Normal Best Language 9: [0] = No aphasia Dysarthria 10: [1] = [id number] dysarthria Extinction and Inattention 11: [0] = No abnormality NIHSS Total: 2 # Assessment Impression: hypoglycemia # Plan Thrombolytic/Intervention: NOT IV Thrombolysis or IA Intervention candidate Thrombolytic Exclusion: > 4.5 hours Thrombolytic/Intraarterial Exclusion: IV thrombolytic and IA intervention considered but not recommended as this patient's symptoms are not clinically consistent with an assumed diagnosis of stroke Other: I have discussed my recommendations with the referring provider # Logistics Telemedicine: Interactive 2 way audio and visual telecommunication technology was utilized during this visit
[2021-09-23] MEDS ORDERED: DEXTROSE 10% IN WATER 1,000 ML IV SCH (12:00)
[2021-09-23 12:57] LABS: Alanine Aminotransferase 10 units/L (7-56); Albumin 3.7 g/dL (3.9-5); Blood Urea Nitrogen 77 mg/dL (7-17); Calcium 9.1 mg/dL (8.4-10.2); Hemolysis Index 7
[2021-09-23 13:33] LABS: BUN/Creatinine Ratio 19
[2021-09-23] MEDS ORDERED: SODIUM CHLORIDE 0.9% 1000 ML 1,000 ML IV ONE (13:43)
[2021-09-23 14:17] LABS: Bilirubin,Urine NEG (Negative); Blood,Urine NEG (Negative); Color,Urine Yellow (Yellow); Urobilinogen,Urine < 2.0 mg/dL (<2.0)
--- NOTE | 2021-09-23 18:27 | History and Physical Report ---
History of Present Illness Date of examination: 09/23/21 Date of admission: September 23, 2021 Chief complaint: Altered sensorium and low blood glucose level History of present illness: 81-year-old female history of hypertension and diabetes who presents emergency department concern for acute stroke. Patient was last known normal yesterday. Around 830 she was noted to be acting abnormally. When paramedics arrived patient's blood sugar was in the 40s she received oral glucose and her blood sugar improved to the 160s. She continues to have slurred speech despite glucose administration. During my examination patient was with normal mentation and moving all 4 ext remities. Hypoglycemia is the cause of her altered sensorium but extensive work-up for stroke was done which is unnecessary. Normal neurological exam. 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) --Arthritis: Yes - Surgical History --Additional Surgical History: Mastectomy - Social History --Smoking Status: Never Smoker --Substance Use Type: None Review of Systems ROS: Stated complaint: STROKE Other details as noted in HPI Comment: Unobtainable due to pts medical conditions Medications and Allergies Allergies Allergy/AdvReac Type Severity Reaction Status Date / Time Sulfa (Sulfonamide Allergy Intermediate Nausea Verified 09/23/21 13:55 Antibiotics) Home Medications Medication Instructions Recorded Confirmed Last Taken Type Simvastatin 20 mg PO QHS 03/04/14 03/10/14 09/22/21 21:00 History 20 MG amLODIPine 10 mg PO DAILY 03/04/14 03/10/14 09/22/21 History 0800 carvediloL [Coreg] 25 mg PO BID 03/04/14 03/10/14 09/22/21 History 0800 Insulin Glargine,Hum.rec.anlog 20 units SQ HS 09/23/21 09/23/21 09/22/21 21:00 History [Lantus Solostar] 20 UNITS Palbociclib [Ibrance] 100 mg PO DAILY 09/23/21 09/23/21 09/22/21 History 0800 Active Meds: Active Medications Dextrose (D10w) 1,000 mls @ 75 mls/hr IV DIRECT YANIV Last Admin: 09/23/21 14:14 Dose: 75 mls/hr Exam - Constitutional Vitals: Temp Pulse Resp BP Pulse Ox 74 22 159/57 96 09/23/21 17:01 09/23/21 17:01 09/23/21 17:01 09/23/21 17:01 General appearance: Present: no acute distress, well-nourished - EENT Eyes: Present: PERRL ENT: hearing intact, clear oral mucosa - Neck Neck: Present: supple, normal ROM - Respiratory Respiratory effort: normal Respiratory: bilateral: CTA - Cardiovascular Heart rate: 78 Rhythm: regular Heart Sounds: Present: S1 & S2. Absent: rub, click - Extremities Extremities: pulses symmetrical, No edema Peripheral Pulses: within normal limits - Abdominal General gastrointestinal: Present: soft, non-tender, non-distended, normal bowel sounds Female genitourinary: Present: normal - Integumentary Integumentary: Present: clear, warm, dry - Musculoskeletal Musculoskeletal: gait normal, strength equal bilaterally - Psychiatric Psychiatric: appropriate mood/affect, intact judgment & insight - Neurologic Neurologic: CNII-XII intact, moves all extremities HEART Score - HEART Score Troponin: Troponin T < 0.010 ng/mL (0.00-0.029) 09/23/21 10:22 Results - Labs CBC & Chem 7: 09/24/21 05:03 09/24/21 05:03 Labs: Laboratory Last Values WBC 2.0 K/mm3 (4.5-11.0) L 09/23/21 10: RBC 2.65 M/mm3 (3.65-5.03) L 09/23/21 10:22 Hgb 7.7 gm/dl (10.1-14.3) L 09/23/21 10: Hct 23.0 % (30.3-42.9) L 09/23/21 10: MCV 87 fl (79-97) 09/23/21 10: MCH 29 pg (28-32) 09/23/21 10: MCHC 34 % (30-34) 09/23/21 10: RDW 22.8 % (13.2-15.2) H 09/23/21 10:22 Plt Count 100 K/mm3 (140-440) L 09/23/21 10:22 Add Manual Diff Complete 09/23/21 10:22 Total Counted 100 09/23/21 10:22 Seg Neuts % (Manual) 71.0 % (40.0-70.0) H 09/23/21 10:22 Band Neutrophils % 0 % 09/23/21 10:22 Lymphocytes % (Manual) 25.0 % (13.4-35.0) 09/23/21 10:22 Reactive Lymphs % (Man) 0 % 09/23/21 10:22 Monocytes % (Manual) 3.0 % (0.0-7.3) 09/23/21 10:22 Eosinophils % (Manual) 0 % (0.0-4.3) 09/23/21 10: Basophils % (Manual) 1.0 % (0.0-1.8) 09/23/21 10:22 Metamyelocytes % 0 % 09/23/21 10: Myelocytes % 0 % 09/23/21 10: Promyelocytes % 0 % 09/23/21 10:22 Blast Cells % 0 % 09/23/21 10: Nucleated RBC % 1.0 % (0.0-0.9) H 09/23/21 10:22 Seg Neutrophils # Man 1.4 K/mm3 (1.8-7.7) L 09/23/21 10:22 Band Neutrophils # 0.0 K/mm3 09/23/21 10:22 Lymphocytes # (Manual) 0.5 K/mm3 (1.2-5.4) L 09/23/21 10:22 Abs React Lymphs (Man) 0.0 K/mm3 09/23/21 10:22 Monocytes # (Manual) 0.1 K/mm3 (0.0-0.8) 09/23/21 10:22 Eosinophils # (Manual) 0.0 K/mm3 (0.0-0.4) 09/23/21 10:22 Basophils # (Manual) 0.0 K/mm3 (0.0-0.1) 09/23/21 10:22 Metamyelocytes # 0.0 K/mm3 09/23/21 10:22 Myelocytes # 0.0 K/mm3 09/23/21 10:22 Promyelocytes # 0.0 K/mm3 09/23/21 10:22 Blast Cells # 0.0 K/mm3 09/23/21 10:22 WBC Morphology Not Reportable 09/23/21 10:22 Hypersegmented Neuts Not Reportable 09/23/21 10:22 Hyposegmented Neuts Not Reportable 09/23/21 10:22 Hypogranular Neuts Not Reportable 09/23/21 10:22 Smudge Cells Few 09/23/21 10:22 Toxic Granulation Not Reportable 09/23/21 10:22 Toxic Vacuolation Not Reportable 09/23/21 10:22 Dohle Bodies Not Reportable 09/23/21 10:22 Pelger-Huet Anomaly Not Reportable 09/23/21 10:22 Shruthi Rods Not Reportable 09/23/21 10:22 Platelet Estimate Consistent w auto 09/23/21 10:22 Clumped Platelets Not Reportable 09/23/21 10:22 Plt Clumps, EDTA Not Reportable 09/23/21 10:22 Large Platelets Not Reportable 09/23/21 10:22 Giant Platelets Not Reportable 09/23/21 10:22 Platelet Satelliting Not Reportable 09/23/21 10:22 Plt Morphology Comment Not Reportable 09/23/21 10:22 RBC Morphology Not Reportable 09/23/21 10:22 Dimorphic RBCs Not Reportable 09/23/21 10:22 Polychromasia Not Reportable 09/23/21 10:22 Hypochromasia Not Reportable 09/23/21 10:22 Poikilocytosis Not Reportable 09/23/21 10:22 Anisocytosis 1+ 09/23/21 10:22 Microcytosis Not Reportable 09/23/21 10:22 Macrocytosis 1+ 09/23/21 10:22 Spherocytes Not Reportable 09/23/21 10:22 Pappenheimer Bodies Not Reportable 09/23/21 10:22 Sickle Cells Not Reportable 09/23/21 10:22 Target Cells Not Reportable 09/23/21 10:22 Tear Drop Cells Not Reportable 09/23/21 10:22 Ovalocytes Few 09/23/21 10:22 Helmet Cells Not Reportable 09/23/21 10:22 Meyer-Admire Bodies Not Reportable 09/23/21 10:22 Luebbering Rings Not Reportable 09/23/21 10:22 Denisse Cells Not Reportable 09/23/21 10:22 Bite Cells Not Reportable 09/23/21 10:22 Crenated Cell Not Reportable 09/23/21 10:22 Elliptocytes Few 09/23/21 10:22 Acanthocytes (Spur) Not Reportable 09/23/21 10:22 Rouleaux Not Reportable 09/23/21 10:22 Hemoglobin C Crystals Not Reportable 09/23/21 10:22 Schistocytes Not Reportable 09/23/21 10:22 Malaria parasites Not Reportable 09/23/21 10:22 Holden Bodies Not Reportable 09/23/21 10:22 Hem Pathologist Commnt No 09/23/21 10:22 PT 13.1 Sec. (12.2-14.9) 09/23/21 10:22 INR 0.90 (0.87-1.13) 09/23/21 10: APTT 26.1 Sec. (24.2-36.6) 09/23/21 10:22 Thrombin Time 18.8 Sec. (15.1-19.6) 09/23/21 10:22 Sodium 145 mmol/L (137-145) 09/23/21 Unknown Potassium 3.9 mmol/L (3.6-5.0) 09/23/21 Unknown Chloride 108.7 mmol/L (98-107) H 09/23/21 Unknown Carbon Dioxide 19 mmol/L (22-30) L 09/23/21 Unknown Anion Gap 21 mmol/L 09/23/21 Unknown BUN 77 mg/dL (7-17) H 09/23/21 Unknown Creatinine 4.0 mg/dL (0.6-1.2) H 09/23/21 Unknown Estimated GFR 13 ml/min 09/23/21 Unknown BUN/Creatinine Ratio 19 % 09/23/21 Unknown Glucose 34 mg/dL (65-100) L* 09/23/21 Unknown POC Glucose 114 mg/dL (70-105) H 09/23/21 18:18 Calcium 9.1 mg/dL (8.4-10.2) 09/23/21 Unknown Total Bilirubin < 0.20 mg/dL (0.1-1.2) 09/23/21 Unknown AST 13 units/L (5-40) 09/23/21 Unknown ALT 10 units/L (7-56) 09/23/21 Unknown Alkaline Phosphatase 59 units/L (35-129) 09/23/21 Unknown Total Creatine Kinase 97 units/L (30-135) 09/23/21 10: CK-MB (CK-2) 1.8 ng/mL (0.0-4.0) 09/23/21 10: CK-MB (CK-2) Rel Index 1.8 (0-4) 09/23/21: Troponin T < 0.010 ng/mL (0.00-0.029) 09/23/21 10: Total Protein 6.6 g/dL (6.3-8.2) 09/23/21 Unknown Albumin 3.7 g/dL (3.9-5) L 09/23/21 Unknown Albumin/Globulin Ratio 1.3 % 09/23/21 Unknown Urine Color Yellow (Yellow) 09/23/21 Unknown Urine Turbidity Clear (Clear) 09/23/21 Unknown Urine pH 5.0 (5.0-7.0) 09/23/21 Unknown Ur Specific Flora 1.023 (1.003-1.030) 09/23/21 Unknown Urine Protein 30 mg/dl mg/dL (Negative) 09/23/21 Unknown Urine Glucose (UA) 50 mg/dL (Negative) 09/23/21 Unknown Urine Ketones Neg mg/dL (Negative) 09/23/21 Unknown Urine Blood Neg (Negative) 09/23/21 Unknown Urine Nitrite Neg (Negative) 09/23/21 Unknown Urine Bilirubin Neg (Negative) 09/23/21 Unknown Urine Urobilinogen < 2.0 mg/dL (<2.0) 09/23/21 Unknown Ur Leukocyte Esterase Neg (Negative) 09/23/21 Unknown Urine WBC (Auto) 2.0 /HPF (0.0-6.0) 09/23/21 Unknown Urine RBC (Auto) 2.0 /HPF (0.0-6.0) 09/23/21 Unknown U Epithel Cells (Auto) 3.0 /HPF (0-13.0) 09/23/21 Unknown Short CBC 09/23/21 09/24/21 Range/Units : 05:03 WBC 2.0 L 2.1 L (4.5-11.0) K/mm3 Hgb 7.7 L 7.5 L (10.1-14.3) gm/dl Hct 23.0 L 23.5 L (30.3-42.9) % Plt Count 100 L 100 L (140-440) K/mm3 BMP 09/23/21 09/24/21 Unknown 05:03 Sodium 145 144 Potassium 3.9 4.1 Chloride 108.7 H 109.1 H Carbon Dioxide 19 L 19 L BUN 77 H 67 H Creatinine 4.0 H 3.7 H Glucose 34 L* 150 H Calcium 9.1 8.6 Cardiac Enzymes 09/23/21 Range/Units 10:22 Total Creatine Kinase 97 (30-135) units/L CK-MB (CK-2) 1.8 (0.0-4.0) ng/mL Troponin T < 0.010 (0.00-0.029) ng/mL Liver Function 09/23/21 09/24/21 Range/Units Unknown 05:03 Total Bilirubin < 0.20 0.20 (0.1-1.2) mg/dL AST 13 17 (5-40) units/L ALT 10 12 (7-56) units/L Alkaline Phosphatase 59 63 (35-129) units/L Albumin 3.7 L 3.3 L (3.9-5) g/dL Urine 09/23/21 Range/Units Unknown Urine Color Yellow (Yellow) Urine pH 5.0 (5.0-7.0) Ur Specific Flora 1.023 (1.003-1.030) Urine Protein 30 mg/dl (Negative) mg/dL Urine Glucose (UA) 50 (Negative) mg/dL Assessment and Plan Advance Directives: Yes (Full code) VTE prophylaxis?: Chemical Plan of care discussed with patient/family: Yes - Patient Problems (1) Acute encephalopathy Current Visit: Yes Status: Acute Plan to address problem: Secondary to hypoglycemia Resolved If blood glucose levels are normal patient can be discharged tomorrow home No further neuro work-up is needed (2) Hypoglycemia Current Visit: Yes Status: Acute Plan to address problem: No oral hypoglycemics Patient to be discharged on decreased insulin dosage Patient counseled about hypoglycemia and its effects and prevention (3) IDDM (insulin dependent diabetes mellitus) Current Visit: Yes Status: Acute Plan to address problem: Insulin dosage is decreased Patient on D5 normal saline (4) Hypertension Current Visit: Yes Status: Chronic Qualifiers: Hypertension type: primary hypertension Qualified Code(s): I10 - Essential (primary) hypertension Plan to address problem: Continue antihypertensive (5) ZULAY (acute kidney injury) Current Visit: Yes Status: Acute Plan to address problem: IV fluids for now Vasomotor nephropathy (6) DVT prophylaxis Current Visit: Yes Status: Acute Plan to address problem: On anticoagulation GI prophylaxis (7) Advance care planning Current Visit: Yes Status: Acute Plan to address problem: Disease education conducted, care plan discussed, diagnosis discussed., Prognosis discussed. Patient is full code. Patient acknowledges understanding and agreement with care plan. +30 minutes.
[2021-09-23] MEDS ORDERED: MORPHINE 2 MG/1 ML INJ IV PRN (18:29)
[2021-09-23] MEDS ORDERED: oxyCODONE /ACETAMINOPHEN 5-325MG TAB PO PRN (18:29)
[2021-09-23] MEDS ORDERED: ACETAMINOPHEN 325 MG TAB PO PRN (18:29)
[2021-09-23] MEDS ORDERED: ONDANSETRON 4 MG/2 ML INJ IV PRN (18:29)
[2021-09-23] MEDS ORDERED: METOCLOPRAMIDE 10 MG/2 ML INJ IV PRN (18:29)
[2021-09-23] MEDS ORDERED: PALBOCICLIB 100 MG PO SCH (18:30)
[2021-09-23] MEDS ORDERED: D5W/0.9% NACL 1,000 ML IV SCH (19:00)
[2021-09-23] MEDS ORDERED: PRAVASTATIN 20 MG TAB PO SCH (22:00)
[2021-09-23] MEDS ORDERED: NON-FORMULARY EACH (Simvastatin [Simvastatin] 20 MG Tablet) PO SCH (22:00)
[2021-09-24] MEDS: HEPARIN 5,000 UNIT/1 ML VIAL SUB-Q SCH ×2 (00:09→09:43)
[2021-09-24] MEDS: carvediloL 25 MG TAB PO SCH ×2 (00:09→09:43)
[2021-09-24] MEDS: amLODIPine 10 MG TAB PO SCH ×2 (00:10→09:43)
[2021-09-24] MEDS ORDERED: SODIUM CHLORIDE 0.9% 1000 ML 1,000 ML IV SCH (00:30)
[2021-09-24 05:41] LABS: Hematocrit 23.5 % (30.3-42.9); Hemoglobin 7.5 gm/dl (10.1-14.3); Mean Corpuscular HGB Conc 32 % (30-34); Mean Corpuscular Volume 88 fl (79-97); Platelet Count 100 K/mm3 (140-440); Red Blood Count 2.68 M/mm3 (3.65-5.03)
[2021-09-24 05:46] LABS: Red Cell Distribution Width 23.1 % (13.2-15.2)
[2021-09-24 06:23] LABS: Albumin 3.3 g/dL (3.9-5); Calcium 8.6 mg/dL (8.4-10.2)
[2021-09-24 06:57] LABS: Total Cells Counted 100
[2021-09-24 06:58] LABS: Anisocytosis 2+; Hypochromasia 2+; Platelet Estimate Consistent w Auto
[2021-09-24] MEDS ORDERED: INSULIN LISPRO 100 UNIT/ML SUB-Q SCH (07:30)
--- NOTE | 2021-09-24 08:54 | Consultation ---
History of Present Illness Consult date: 09/24/21 Reason for Consult: Confusion,Hypoglycemia,and right carotid stenosis History of present illness: History of Present Illness Date of examination: 09/23/21 Date of admission: September 23, 2021 Chief complaint: Altered sensorium and low blood glucose level History of present illness: 81-year-old female history of hypertension and diabetes who presents emergency department concern for acute stroke. Patient was last known normal yesterday. Around 830 she was noted to be acting abnormally. When paramedics arrived patient's blood sugar was in the 40s she received oral glucose and her blood sugar improved to the 160s. She continues to have slurred speech despite glucose administration. During my examination patient was with normal mentation and moving all 4 extremities. Patient being admitted for observation to rule out recurrent hypoglycemia Oral hypoglycemics to be held In Er Ct brain is unremarkable CTA brain and neck are remarkable for right ICA stenosis >70 % she denied hx of CVA ,she does not take ASA according to pt. she is with recurrent hypoglycemia and her PCP had adjusted her Insulin dose she is on chemotherapy for treatment of right breast cancer with LN metastesis she refused Brain MRI according to her last MRI brain is done 6 months ago !!! 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) --Arthritis: Yes - Surgical History --Additional Surgical History: Mastectomy - Social History --Smoking Status: Never Smoker --Substance Use Type: None Review of Systems ROS: Stated complaint: STROKE Other details as noted in HPI Comment: Unobtainable due to pts medical conditions Medications and Allergies Allergies Allergy/AdvReac Type Severity Reaction Status Date / Time Sulfa (Sulfonamide Allergy Intermediate Nausea Verified 09/23/21 13:55 Antibiotics) Home Medications Medication Instructions Recorded Confirmed Last Taken Type Simvastatin 20 mg PO QHS 03/04/14 03/10/14 09/22/21 21:00 History 20 MG amLODIPine 10 mg PO DAILY 03/04/14 03/10/14 09/22/21 History 0800 carvediloL [Coreg] 25 mg PO BID 03/04/14 03/10/14 09/22/21 History 0800 Insulin Glargine,Hum.rec.anlog 20 units SQ HS 09/23/21 09/23/21 09/22/21 21:00 History [Lantus Solostar] 20 UNITS Palbociclib [Ibrance] 100 mg PO DAILY 09/23/21 09/23/21 09/22/21 History 0800 Active Meds: Active Medications Dextrose (D10w) 1,000 mls @ 75 mls/hr IV DIRECT YANIV Last Admin: 09/23/21 14:14 Dose: 75 mls/hr Medications and Allergies Allergies Allergy/AdvReac Type Severity Reaction Status Date / Time Sulfa (Sulfonamide Allergy Intermediate Nausea Verified 09/23/21 13:55 Antibiotics) Home Medications Medication Instructions Recorded Confirmed Last Taken Type Simvastatin 20 mg PO QHS 03/04/14 03/10/14 09/22/21 21:00 History 20 MG amLODIPine 10 mg PO DAILY 03/04/14 03/10/14 09/22/21 History 08 carvediloL [Coreg] 25 mg PO BID 03/04/14 03/10/14 09/22/21 History 0800 Insulin Glargine,Hum.rec.anlog 20 units SQ HS 09/23/21 09/23/21 09/22/21 21:00 H istory [Lantus Solostar] 20 UNITS Palbociclib [Ibrance] 100 mg PO DAILY 09/23/21 09/23/21 09/22/21 History 0800 Active Meds: Active Medications Acetaminophen (Acetaminophen 325 Mg Tab) 650 mg PO Q4H PRN PRN Reason: Pain MILD(1-3)/Fever >100.5/COELHO Amlodipine Besylate (Amlodipine 10 Mg Tab) 10 mg PO DAILY YANIV Last Admin: 09/24/21 00:10 Dose: Not Given Carvedilol (Carvedilol 25 Mg Tab) 25 mg PO BID YANIV Last Admin: 09/24/21 00:09 Dose: Not Given Heparin Sodium (Porcine) (Heparin 5,000 Unit/1 Ml Vial) 5,000 unit SUB-Q Q12HR YANIV Last Admin: 09/24/21 00:09 Dose: Not Given Sodium Chloride (Nacl 0.9% 1000 Ml) 1,000 mls @ 75 mls/hr IV DIRECT YANIV Last Admin: 09/24/21 01:43 Dose: 75 mls/hr Insulin Human Lispro (Insulin Lispro 100 Unit/Ml) 0 unit SUB-Q ACHS [facility]; Protocol Metoclopramide HCl (Metoclopramide 10 Mg/2 Ml Inj) 10 mg IV Q6H PRN PRN Reason: Nausea And Vomiting Miscellaneous Medication (Palbociclib [Ibrance]) 100 mg PO DAILY [facility] Morphine Sulfate (Morphine 2 Mg/1 Ml Inj) 2 mg IV Q4H PRN PRN Reason: Pain, Moderate (4-6) Ondansetron HCl (Ondansetron 4 Mg/2 Ml Inj) 4 mg IV Q8H PRN PRN Reason: Nausea And Vomiting Oxycodone/Acetaminophen (Oxycodone /Acetaminophen 5-325mg Tab) 1 tab PO Q6H PRN PRN Reason: Pain, Moderate (4-6) Pravastatin Sodium (Pravastatin 20 Mg Tab) 20 mg PO QHS [facility] Last Admin: 09/24/21 00:09 Dose: 20 mg Sodium Chloride (Sodium Chloride 0.9% 10 Ml Flush Syringe) 10 ml IV BID [facility] Last Admin: 09/24/21 00:10 Dose: 10 ml Sodium Chloride (Sodium Chloride 0.9% 10 Ml Flush Syringe) 10 ml IV PRN PRN PRN Reason: LINE FLUSH Physical Examination - Vital Signs Vital Signs: Vital Signs Resp 14 09/23/21 10:27 - Constitutional General appearance: comfortable - EENT EENT: Present: PERRL, mucous membranes moist - Respiratory Respiratory: Present: lungs clear, rhonchi - Cardiovascular Cardiovascular: Present: regular rate, normal S1, normal S2 Extremities: Present: no peripheral edema bilatateraly, no clubbing, cyanosis - Gastrointestinal Gastrointestinal: Present: normoactive bowel sounds - Integumentary Integumentary: Present: normal - Neurologic Cranial nerve examination: PERRL, EOMI, intact Speech examination: intact Sensorimotor examination: intact Detailed motor examination: grossly full strength in - Level of Consciousness 1a. Level of Consciousness: alert/keenly responsive - LOC Questions 1b. LOC Questions: answers both correctly - LOC Command 1c. LOC Commands: performs tasks correctly - Best Gaze 2. Best Gaze: normal - Visual 3. Visual: no visual loss - Facial Palsy 4. Facial Palsy: normal symmetrical movement - Motor Arm 5a. Motor Arm Left: no drift 5b. Motor Arm Right: no drift - Motor Leg 6a. Motor Leg Left: no drift 6b. Motor Leg Right: no drift - Limb Ataxia 7. Limb Ataxia: absent - Sensory 8. Sensory: normal - Best Language 9. Best Language: no aphasia - Dysarthria 10. Dysarthria: normal - Extinction and Inattention 11. Extinction/Inattention: no abnormality - Scoring Total Score: 0 Stroke Severity: No Stroke Symptoms Results - Laboratory Findings CBC and BMP: 09/24/21 05:03 09/24/21 05:03 Abnormal Lab Findings: Abnormal Labs 09/23/21 09/23/21 09/23/21 10:22 11:06 13:05 WBC 2.0 L RBC 2.65 L Hgb 7.7 L Hct 23.0 L RDW 22.8 H Plt Count 100 L Seg Neuts % (Manual) 71.0 H Lymphocytes % (Manual) Nucleated RBC % 1.0 H Seg Neutrophils # Man 1.4 L Lymphocytes # (Manual) 0.5 L Chloride Carbon Dioxide BUN Creatinine Glucose POC Glucose 44 L 120 H Albumin 09/23/21 09/23/21 09/23/21 18:18 21:35 Unknown WBC RBC Hgb Hct RDW Plt Count Seg Neuts % (Manual) Lymphocytes % (Manual) Nucleated RBC % Seg Neutrophils # Man Lymphocytes # (Manual) Chloride 108.7 H Carbon Dioxide 19 L BUN 77 H Creatinine 4.0 H Glucose 34 L* POC Glucose 114 H 234 H Albumin 3.7 L 09/24/21 09/24/21 09/24/21 00:17 05:03 05:03 WBC 2.1 L RBC 2.68 L Hgb 7.5 L Hct 23.5 L RDW 23.1 H Plt Count 100 L Seg Neuts % (Manual) Lymphocytes % (Manual) 36.0 H Nucleated RBC % Seg Neutrophils # Man 1.2 L Lymphocytes # (Manual) 0.8 L Chloride 109.1 H Carbon Dioxide 19 L BUN 67 H Creatinine 3.7 H Glucose 150 H POC Glucose 249 H Albumin 3.3 L Assessment and Plan Assessment and Plan 81-year-old female history of hypertension and diabetes who presents emergency department concern for acute stroke. Patient was last known normal yesterday. Around 830 she was noted to be acting abnormally. When paramedics arrived patient's blood sugar was in the 40s she received oral glucose and her blood sugar improved to the 160s. She continues to have slurred speech despite glucose administration. During my examination patient was with normal mentation and moving all 4 extremities. - Patient Problems # Acute encephalopathy/ weakness -Etiology not clear if from Hypoglycemia and or TIA vs CVA -presented to Er with confusion and slurred speech -Glucose was in 40th -CT brain is unremarkable -CTA brain and neck remarkable for Right ICA stenosis >70% -pt. refused MRI -placed on ASA 325 mg daily -LDL is pending -echo is pending -take provachole 20 mf daily # Right ICA stenosis -noted on CTA neck -placed on ASA and Provachole -she refused MRI brain -LDL is pending -echo is pending # Hypoglycemia -No oral hypoglycemics -Patient to be discharged on decreased insulin dosage -Patient counseled about hypoglycemia and its effects and prevention # IDDM (insulin dependent diabetes mellitus) -Insulin dosage is decreased -Patient on D5 normal saline -A1C is pending # Hx of cancer breast -currently on chemotherapy -she is with LN metastasis -followed by oncology # Hypertension -Continue antihypertensive # ZULAY (acute kidney injury) -BUN/Cr#67/3.7 -she is with hx of chronic kidney disease -IV fluids for now -Vasomotor nephropathy # DVT prophylaxis -On anticoagulation GI prophylaxis PLAN 1- Control of suger /monitor closly 2- ASA 81 mg daily,and provachol 20 mg 3- pt. refused MRI brain 4- review LDL and A1C 5- Consider vascualr surgery follow up 6-echo will follow as needed
--- NOTE | 2021-09-24 09:19 | Electrocardiograph Report ---
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
--- NOTE | 2021-09-24 09:35 | Progress Note ---
Assessment and Plan Assessment and plan: (1) Acute encephalopathy Current Visit: Yes Status: Acute Plan to address problem: Secondary to hypoglycemia Resolved If blood glucose levels are normal patient can be discharged tomorrow home No further neuro work-up is needed (2) Hypoglycemia Current Visit: Yes Status: Acute Plan to address problem: No oral hypoglycemics Patient to be discharged on decreased insulin dosage Patient counseled about hypoglycemia and its effects and prevention (3) IDDM (insulin dependent diabetes mellitus) Current Visit: Yes Status: Acute Plan to address problem: Insulin dosage is decreased Patient on D5 normal saline (4) Hypertension Current Visit: Yes Status: Chronic Qualifiers: Hypertension type: primary hypertension Qualified Code(s): I10 - Essential (primary) hypertension Plan to address problem: Continue antihypertensive (5) ZULAY (acute kidney injury) Current Visit: Yes Status: Acute Plan to address problem: IV fluids for now Vasomotor nephropathy (6) DVT prophylaxis Current Visit: Yes Status: Acute Plan to address problem: On anticoagulation GI prophylaxis (7) Advance care planning Current Visit: Yes Status: Acute Plan to address problem: Disease education conducted, care plan discussed, diagnosis discussed., Prognosis discussed. Patient is full code. Patient acknowledges understanding and agreement with care plan. +30 minutes. Hospitalist Physical - Constitutional Vitals: Temp Pulse Resp BP Pulse Ox 98.6 F 73 17 186/57 92 09/24/21 08:56 09/24/21 03:35 09/24/21 08:56 09/24/21 08:56 09/24/21 03:35 General appearance: Present: no acute distress, well-nourished HEART Score - HEART Score Troponin: Troponin T < 0.010 ng/mL (0.00-0.029) 09/23/21 10:22 Results - Labs CBC & Chem 7: 09/24/21 05:03 09/24/21 05:03 Labs: Laboratory Last Values WBC 2.1 K/mm3 (4.5-11.0) L 09/24/21 05:03 RBC 2.68 M/mm3 (3.65-5.03) L 09/24/21 05:03 Hgb 7.5 gm/dl (10.1-14.3) L 09/24/21 05:03 Hct 23.5 % (30.3-42.9) L 09/24/21 05:03 MCV 88 fl (79-97) 09/24/21 05:03 MCH 28 pg (28-32) 09/24/21 05:03 MCHC 32 % (30-34) 09/24/21 05:03 RDW 23.1 % (13.2-15.2) H 09/24/21 05:03 Plt Count 100 K/mm3 (140-440) L 09/24/21 05:03 Add Manual Diff Complete 09/24/21 05:03 Total Counted 100 09/24/21 05:03 Seg Neuts % (Manual) 57.0 % (40.0-70.0) 09/24/21 05:03 Band Neutrophils % 1.0 % 09/24/21 05:03 Lymphocytes % (Manual) 36.0 % (13.4-35.0) H 09/24/21 05:03 Reactive Lymphs % (Man) 0 % 09/24/21 05:03 Monocytes % (Manual) 3.0 % (0.0-7.3) 09/24/21 05:03 Eosinophils % (Manual) 2.0 % (0.0-4.3) 09/24/21 05:03 Basophils % (Manual) 1.0 % (0.0-1.8) 09/24/21 05:03 Metamyelocytes % 0 % 09/24/21 05:03 Myelocytes % 0 % 09/24/21 05:03 Promyelocytes % 0 % 09/24/21 05:03 Blast Cells % 0 % 09/24/21 05:03 Nucleated RBC % Not Reportable 09/24/21 05:03 Seg Neutrophils # Man 1.2 K/mm3 (1.8-7.7) L 09/24/21 05:03 Band Neutrophils # 0.0 K/mm3 09/24/21 05:03 Lymphocytes # (Manual) 0.8 K/mm3 (1.2-5.4) L 09/24/21 05:03 Abs React Lymphs (Man) 0.0 K/mm3 09/24/21 05:03 Monocytes # (Manual) 0.1 K/mm3 (0.0-0.8) 09/24/21 05:03 Eosinophils # (Manual) 0.0 K/mm3 (0.0-0.4) 09/24/21 05:03 Basophils # (Manual) 0.0 K/mm3 (0.0-0.1) 09/24/21 05:03 Metamyelocytes # 0.0 K/mm3 09/24/21 05:03 Myelocytes # 0.0 K/mm3 09/24/21 05:03 Promyelocytes # 0.0 K/mm3 09/24/21 05:03 Blast Cells # 0.0 K/mm3 09/24/21 05:03 WBC Morphology Not Reportable 09/24/21 05:03 Hypersegmented Neuts Not Reportable 09/24/21 05:03 Hyposegmented Neuts Not Reportable 09/24/21 05:03 Hypogranular Neuts Not Reportable 09/24/21 05:03 Smudge Cells Not Reportable 09/24/21 05:03 Toxic Granulation Not Reportable 09/24/21 05:03 Toxic Vacuolation Not Reportable 09/24/21 05:03 Dohle Bodies Not Reportable 09/24/21 05:03 Pelger-Huet Anomaly Not Reportable 09/24/21 05:03 Shruthi Rods Not Reportable 09/24/21 05:03 Platelet Estimate Consistent w auto 09/24/21 05:03 Clumped Platelets Not Reportable 09/24/21 05:03 Plt Clumps, EDTA Not Reportable 09/24/21 05:03 Large Platelets Not Reportable 09/24/21 05:03 Giant Platelets Not Reportable 09/24/21 05:03 Platelet Satelliting Not Reportable 09/24/21 05:03 Plt Morphology Comment Not Reportable 09/24/21 05:03 RBC Morphology Not Reportable 09/24/21 05:03 Dimorphic RBCs Not Reportable 09/24/21 05:03 Polychromasia Not Reportable 09/24/21 05:03 Hypochromasia 2+ 09/24/21 05:03 Poikilocytosis Not Reportable 09/24/21 05:03 Anisocytosis 2+ 09/24/21 05:03 Microcytosis Not Reportable 09/24/21 05:03 Macrocytosis Not Reportable 09/24/21 05:03 Spherocytes Not Reportable 09/24/21 05:03 Pappenheimer Bodies Not Reportable 09/24/21 05:03 Sickle Cells Not Reportable 09/24/21 05:03 Target Cells Not Reportable 09/24/21 05:03 Tear Drop Cells Not Reportable 09/24/21 05:03 Ovalocytes Not Reportable 09/24/21 05:03 Helmet Cells Not Reportable 09/24/21 05:03 Meyer-Estancia Bodies Not Reportable 09/24/21 05:03 [place] Rings Not Reportable 09/24/21 05:03 Denisse Cells Not Reportable 09/24/21 05:03 Bite Cells Not Reportable 09/24/21 05:03 Crenated Cell Not Reportable 09/24/21 05:03 Elliptocytes Not Reportable 09/24/21 05:03 Acanthocytes (Spur) Not Reportable 09/24/21 05:03 Rouleaux Not Reportable 09/24/21 05:03 Hemoglobin C Crystals Not Reportable 09/24/21 05:03 Schistocytes Not Reportable 09/24/21 05:03 Malaria parasites Not Reportable 09/24/21 05:03 Holden Bodies Not Reportable 09/24/21 05:03 Hem Pathologist Commnt No 09/24/21 05:03 PT 13.1 Sec. (12.2-14.9) 09/23/21 10:22 INR 0.90 (0.87-1.13) 09/23/21 10:22 APTT 26.1 Sec. (24.2-36.6) 09/23/21 10:22 Thrombin Time 18.8 Sec. (15.1-19.6) 09/23/21 10:22 Sodium 144 mmol/L (137-145) 09/24/21 05:03 Potassium 4.1 mmol/L (3.6-5.0) 09/24/21 05:03 Chloride 109.1 mmol/L (98-107) H 09/24/21 05:03 Carbon Dioxide 19 mmol/L (22-30) L 09/24/21 05:03 Anion Gap 20 mmol/L 09/24/21 05:03 BUN 67 mg/dL (7-17) H 09/24/21 05:03 Creatinine 3.7 mg/dL (0.6-1.2) H 09/24/21 05:03 Estimated GFR 14 ml/min 09/24/21 05:03 BUN/Creatinine Ratio 18 % 09/24/21 05:03 Glucose 150 mg/dL (65-100) H 09/24/21 05:03 POC Glucose 97 mg/dL (70-105) 09/24/21 08:02 Calcium 8.6 mg/dL (8.4-10.2) 09/24/21 05:03 Total Bilirubin 0.20 mg/dL (0.1-1.2) 09/24/21 05:03 AST 17 units/L (5-40) 09/24/21 05:03 ALT 12 units/L (7-56) 09/24/21 05:03 Alkaline Phosphatase 63 units/L (35-129) 09/24/21 05:03 Total Creatine Kinase 97 units/L (30-135) 09/23/21 10:22 CK-MB (CK-2) 1.8 ng/mL (0.0-4.0) 09/23/21 10: CK-MB (CK-2) Rel Index 1.8 (0-4) 09/23/21 10: Troponin T < 0.010 ng/mL (0.00-0.029) 09/23/21 10:22 Total Protein 7.1 g/dL (6.3-8.2) 09/24/21 05:03 Albumin 3.3 g/dL (3.9-5) L 09/24/21 05:03 Albumin/Globulin Ratio 0.9 % 09/24/21 05:03 Urine Color Yellow (Yellow) 09/23/21 Unknown Urine Turbidity Clear (Clear) 09/23/21 Unknown Urine pH 5.0 (5.0-7.0) 09/23/21 Unknown Ur Specific [place] 1.023 (1.003-1.030) 09/23/21 Unknown Urine Protein 30 mg/dl mg/dL (Negative) 09/23/21 Unknown Urine Glucose (UA) 50 mg/dL (Negative) 09/23/21 Unknown Urine Ketones Neg mg/dL (Negative) 09/23/21 Unknown Urine Blood Neg (Negative) 09/23/21 Unknown Urine Nitrite Neg (Negative) 09/23/21 Unknown Urine Bilirubin Neg (Negative) 09/23/21 Unknown Urine Urobilinogen < 2.0 mg/dL (<2.0) 09/23/21 Unknown Ur Leukocyte Esterase Neg (Negative) 09/23/21 Unknown Urine WBC (Auto) 2.0 /HPF (0.0-6.0) 09/23/21 Unknown Urine RBC (Auto) 2.0 /HPF (0.0-6.0) 09/23/21 Unknown U Epithel Cells (Auto) 3.0 /HPF (0-13.0) 09/23/21 Unknown [place]/IV: Voiding Method Toilet Active Medications - Current Medications Current Medications: Generic Name Dose Route Start Last Admin Trade Name Freq PRN Reason Stop Dose Admin Acetaminophen 650 mg 09/23/21 18:29 Acetaminophen 325 Mg Tab PO Q4H PRN Pain MILD(1-3)/Fever >100.5/COELHO Amlodipine Besylate 10 mg 09/23/21 19:00 09/24/21 00:10 Amlodipine 10 Mg Tab PO Not Given DAILY ON LICENSE OF [facility] Aspirin 325 mg 09/24/21 10:00 Aspirin Ec 325 Mg Tab PO QDAY ON LICENSE OF [facility] Carvedilol 25 mg 09/23/21 22:00 09/24/21 00:09 Carvedilol 25 Mg Tab PO Not Given BID ON LICENSE OF [facility] Heparin Sodium (Porcine) 5,000 unit 09/23/21 22:00 09/24/21 00:09 Heparin 5,000 Unit/1 Ml Vial SUB-Q Not Given Q12HR ON LICENSE OF [facility] Sodium Chloride 1,000 mls @ 75 mls/hr 09/24/21 00:30 09/24/21 01:43 Nacl 0.9% 1000 Ml IV 75 mls/hr DIRECT ON LICENSE OF [facility] Administration Insulin Human Lispro 0 unit 09/24/21 07:30 Insulin Lispro 100 Unit/Ml SUB-Q [facility] ON LICENSE OF [facility] Protocol Metoclopramide HCl 10 mg 09/23/21 18:29 Metoclopramide 10 Mg/2 Ml Inj IV Q6H PRN Nausea And Vomiting Miscellaneous Medication 100 mg 09/23/21 18:30 Palbociclib [Ibrance] PO DAILY ON LICENSE OF [facility] Morphine Sulfate 2 mg 09/23/21 18:29 Morphine 2 Mg/1 Ml Inj IV Q4H PRN Pain, Moderate (4-6) Ondansetron HCl 4 mg 09/23/21 18:29 Ondansetron 4 Mg/2 Ml Inj IV Q8H PRN Nausea And Vomiting Oxycodone/Acetaminophen 1 tab 09/23/21 18:29 Oxycodone /Acetaminophen 5-325mg Tab PO Q6H PRN Pain, Moderate (4-6) Pravastatin Sodium 20 mg 09/23/21 22:00 09/24/21 00:09 Pravastatin 20 Mg Tab PO 20 mg QHS YANIV Administration Sodium Chloride 10 ml 09/23/21 22:00 09/24/21 00:10 Sodium Chloride 0.9% 10 Ml Flush Syringe IV 10 ml BID YANIV Administration Sodium Chloride 10 ml 09/23/21 18:29 Sodium Chloride 0.9% 10 Ml Flush Syringe IV PRN PRN LINE FLUSH
[2021-09-24] MEDS ORDERED: ASPIRIN EC 325 MG TAB PO SCH (10:00)
[2021-09-24 11:03] VITALS: BP 170/49
--- NOTE | 2021-09-24 15:05 | Discharge Summary ---
Providers - Providers Date of Admission: 09/23/21 18:29 Date of discharge: 09/24/21 Attending physician: JASON BALTAZAR 09/23/21 18:29 Consult to Physician [CONS] Routine Comment: Consulting Provider: HEATHER ESPITIA Physician Instructions: Reason For Exam: Acute encephalopathy, hypoglycemia Primary care physician: KERRI HUITRON Hospitalization Condition: Stable Pertinent studies: CT head without contrast CTA chest CTA neck Patient refused MRI Hospital course: Assessment and plan: (1) Acute metabolic encephalopathy Current Visit: Yes Status: Acute Plan to address problem: Secondary to hypoglycemia Resolved If blood glucose levels are normal patient can be discharged tomorrow home No further neuro work-up is needed (2) Hypoglycemia improved box Current Visit: Yes Status: Acute Plan to address problem: No oral hypoglycemics Patient to be discharged on decreased insulin dosage Patient counseled about hypoglycemia and its effects and prevention (3) IDDM (insulin dependent diabetes mellitus) Current Visit: Yes Status: Acute Plan to address problem: Insulin dosage is decreased Patient on D5 normal saline (4) Hypertension Current Visit: Yes Status: Chronic Qualifiers: Hypertension type: primary hypertension Qualified Code(s): I10 - Essential (primary) hypertension Plan to address problem: Continue antihypertensive (5) ZULAY (acute kidney injury) Current Visit: Yes Status: Acute Plan to address problem: IV fluids for now Vasomotor nephropathy (6) DVT prophylaxis Current Visit: Yes Status: Acute Plan to address problem: On anticoagulation GI prophylaxis Disposition: 01 HOME / SELF CARE / HOMELESS Final Discharge Diagnosis (Prints w/discharge instructions): Acute metabolic encephalopathy resolved. Right carotid artery stenosis. Hypoglycemia resolved. Type 2 diabetes mellitus. Hypertension. Acute kidney injury kidney injury. History of breast cancer on chemotherapy. Obesity BMI 41 point. Moderate protein calorie malnutrition Time spent for discharge: 45 minutes Core Measure Documentation - Palliative Care Palliative Care/ Comfort Measures: Not Applicable - Core Measures Any of the following diagnoses?: none Exam - Constitutional Vitals: Temp Pulse Resp BP Pulse Ox 98.0 F 74 22 170/49 98 09/24/21 11:02 09/24/21 08:00 09/24/21 13:00 09/24/21 11:02 09/24/21 13:00 General appearance: Present: no acute distress, well-nourished - EENT Eyes: Present: PERRL, EOM intact - Neck Neck: Present: supple, normal ROM - Respiratory Respiratory effort: normal Respiratory: bilateral: diminished, negative: rales, rhonchi, wheezing - Cardiovascular Rhythm: regular Heart Sounds: Present: S1 & S2 - Extremities Extremities: no ischemia, No edema - Abdominal General gastrointestinal: Present: soft, non-tender, non-distended, normal bowel sounds - Integumentary Integumentary: Present: clear, warm - Musculoskeletal Musculoskeletal: strength equal bilaterally - Psychiatric Psychiatric: appropriate mood/affect, cooperative - Neurologic Neurologic: moves all extremities Plan Activity: advance as tolerated Diet: diabetic Additional Instructions: You have worsening symptoms contact MD or go to the nearest emergency room as needed. Advised to follow private primary care physician, hematology oncologist, per schedule. Advised to follow private emg technician in 3 to 5 days. Take plenty oral fluids. You are advised to see private neurologist if you have any change in mental status SANDY. Advised diet modification, exercise as tolerated, and weight reduction when you are medically stable. Hold insulin for 2 days and resume if your blood sugars are high. Advised to see private vascular Dr. Ian Turcios for further evaluation of your right carotid artery stenosis Follow up with: DESI RAMIREZ MD [Staff Physician] - 09/27/21 KERRI HUITRON MD [Primary Care Provider] - 3-5 Days IAN TURCIOS MD [Staff Physician] - 7 Days
== END 2021-09-24 15:30 | disposition home or self-care (01) ==
LOC: ED 10:02 → 4A 18:29
PROVIDERS: ADMIT Internal Medicine; ATTEND Internal Medicine
DX: G93.40 Encephalopathy, unspecified (principal); I12.9 Hypertensive chronic kidney disease with stage 1 through stage 4 chronic kidney disease, or unspecified chronic kidney disease; N18.9 Chronic kidney disease, unspecified; E11.22 Type 2 diabetes mellitus with diabetic chronic kidney disease; E11.649 Type 2 diabetes mellitus with hypoglycemia without coma; I65.21 Occlusion and stenosis of right carotid artery; T38.3X1A Poisoning by insulin and oral hypoglycemic [antidiabetic] drugs, accidental (unintentional), initial encounter; M19.90 Unspecified osteoarthritis, unspecified site; N17.9 Acute kidney failure, unspecified; R29.703 NIHSS score 3; Z79.899 Other long term (current) drug therapy; Z98.890 Other specified postprocedural states; Z79.4 Long term (current) use of insulin; Z85.3 Personal history of malignant neoplasm of breast
CPT/HCPCS: 36415; 70450; 70496; 70498; 71045; 80053; 81001; 82550; 82553; 82962; 84484; 85025; 85610; 85670; 85730; 93005; 96360; 96361; 96372; 99285; G0378; J1644; J3490; J7030; Q9967; 85007; Q0162